=== PATIENT | male | born 1940 | race Caucasian/White ===

== ENCOUNTER → 2018-01-18 | Outpatient (CLI) | payer MEDICARE, OTHER ==
--- NOTE | 2018-01-18 15:21 | XCELERA REPORT ---
[address] [address] Lower Extremity Arterial Evaluation Name: SIMA OLVERA Age: 78 yrs Gender: Male : 1940 Patient Status: Outpatient Patient Location: Study Date: 01/18/2018 11:32 AM Procedure: A color flow and duplex scan of the lower extremity arteries was performed bilaterally with velocity and waveform anaylsis. 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 Biphasic form Femoral to the infrageniculate vessels. 20-49 % stenosis at the Femoral artery. Ankle Brachial index not done due to bandaging. Left Side Arterial Evaluation Normal velocity and triphasic waveforms noted in the Common Femoral artery. Biphasic in the Deep Femoral then monophasic to the infrageniculate vessels. With well preserved waveform amplitude. 50-99 % stenosis at the Femoral artery. Ankle Brachial index not done due to bandaging. Interpretation Summary Moderate hemodynamically significant lesions in the right lower extremity only, on duplex imaging, at rest. Severe hemodynamically significant lesions in the left lower extremity only, on duplex imaging, at rest. : BRUCE EAST > [facility]
--- NOTE | 2018-01-18 18:26 | XCELERA REPORT ---
[address] [address] Lower Extremity Venous Evaluation Name: SIMA OLVERA Age: 78 yrs Gender: Male : 1940 Patient Status: Outpatient Patient Location: Study Date: 01/18/2018 10:36 AM Procedure: A bilateral duplex scan of the lower extremity veins was performed. The evaluation included responses to compression and other maneuvers with patient in the supine and standing positions to assess venous insufficiency. Reason For Study: ULCER Ordering Physician: BRUCE EAST Performed By: Janice Galloway Right Sided Venous Evaluation Deep venous system evaluatiion shows patent veins with no obstruction or significant reflux identified. Sapheno Femoral junction: no reflux. Femoral vein reflux: no reflux. Greater Saphenous vein, Proximal thigh: reflux: no reflux. Greater Saphenous vein, Distal thigh: reflux: no reflux. Greater Saphenous vein, Proximal below knee: reflux: no reflux. No significant Perforators identified. Left Sided Venous Evaluation Deep venous system evaluatiion shows patent veins with no obstruction or significant reflux identified. Sapheno Femoral junction: no reflux. Femoral vein reflux: no reflux. Greater Saphenous vein, Proximal thigh: reflux: no reflux. Greater Saphenous vein, Distal thigh: reflux: no reflux. Greater Saphenous vein, Proximal below knee: reflux: no reflux. No significant Perforators identified. Interpretation Summary No duplex evidence of DVT or obstruction in the bilateral lower extremities. No deep or superficial reflux in the lower extremities was found. : BRUCE EAST > [facility] [place]
== END ==
LOC: SP 10:11
PROVIDERS: ATTEND Surgery
DX: L97.212 Non-pressure chronic ulcer of right calf with fat layer exposed (principal); L97.522 Non-pressure chronic ulcer of other part of left foot with fat layer exposed
CPT/HCPCS: 93925; 93970

== ENCOUNTER 2019-09-06 10:30 | Day surgery (SDC) | payer MEDICARE, OTHER ==
[~2019-09-06 10:30] MED LIST: CHONDR SU A NA/HYALUR INTRAOC KIT (SURGICARE) ONE; DORZOLAMIDE HCL 2%/TIMOLOL MALEAT 0.5% OPH SOLN 10 ML OD PRN; EPINEPHRINE INJ/PF 1 MG/1 ML AMPULE ONE; KETOROLAC TROMETHAMINE 0.45% 4 DROP/0.4 ML DROPERETTE OD PRN; LIDOCAINE 1%/PHENYLEPHRINE 1.5% 1 ML VIAL ONE; TOBRAMYCIN SULFATE/DEXAMETH OPH OINTMENT 3.5 GM ONE
[2019-09-06] MEDS ORDERED: ONDANSETRON HCL INJ/PF 4 MG/2 ML SDV ONE (10:35)
[2019-09-06] MEDS ORDERED: MIDAZOLAM 2 MG/2 ML INJ ONE (10:35)
[2019-09-06] MEDS ORDERED: FENTANYL CITRATE INJ/PF 100 MCG/2 ML AMPUL ONE (10:36)
[2019-09-06] MEDS: TETRACAINE HCL 0.5% OPH SOLN 4 ML OD PRN ×3 (11:05→11:38)
[2019-09-06] MEDS: BESIFLOXACIN HCL 0.6% OPH SUSP 5 ML BOTTLE OD PRN ×3 (11:05→11:59)
[2019-09-06] MEDS: TROPICAMIDE 1% OPH SOLN 15 ML OD PRN ×3 (11:05→11:25)
[2019-09-06] MEDS: CYCLOPENTOLATE 0.2%/PHENYLEPHRINE 1% OPH SOLN 2 ML OD PRN ×3 (11:05→11:25)
[2019-09-06] MEDS ORDERED: TOBRAMYCIN SULFATE/DEXAMETH OPH OINTMENT 3.5 GM ONE (11:24)
== END 2019-09-06 12:50 | disposition home or self-care (01) ==
LOC: SC 10:30
PROVIDERS: ATTEND Ophthalmology
DX: H25.11 Age-related nuclear cataract, right eye (principal); I10 Essential (primary) hypertension; E78.00 Pure hypercholesterolemia, unspecified; J44.9 Chronic obstructive pulmonary disease, unspecified; I48.91 Unspecified atrial fibrillation; M10.9 Gout, unspecified; Z86.14 Personal history of Methicillin resistant Staphylococcus aureus infection; Z79.899 Other long term (current) drug therapy; Z79.01 Long term (current) use of anticoagulants; Z87.891 Personal history of nicotine dependence
CPT/HCPCS: 66984; V2632; J2250; J3490 ×3; A9270; J0171; J2405; J2370; 142; J3010

== ENCOUNTER 2019-09-20 10:58 | Day surgery (SDC) | payer MEDICARE, OTHER ==
[~2019-09-20 10:58] MED LIST changes: -CHONDR SU A NA/HYALUR INTRAOC KIT (SURGICARE) ONE; -DORZOLAMIDE HCL 2%/TIMOLOL MALEAT 0.5% OPH SOLN 10 ML OD PRN; -EPINEPHRINE INJ/PF 1 MG/1 ML AMPULE ONE; -KETOROLAC TROMETHAMINE 0.45% 4 DROP/0.4 ML DROPERETTE OD PRN; +KETOROLAC TROMETHAMINE 0.45% 4 DROP/0.4 ML DROPERETTE OS PRN; +LIDOCAINE 1% INJ-PF (10 MG/ML) 30 ML SDV ONE; -LIDOCAINE 1%/PHENYLEPHRINE 1.5% 1 ML VIAL ONE; -TOBRAMYCIN SULFATE/DEXAMETH OPH OINTMENT 3.5 GM ONE
[2019-09-20] MEDS ORDERED: MIDAZOLAM 2 MG/2 ML INJ ONE (11:07)
[2019-09-20] MEDS ORDERED: FENTANYL CITRATE INJ/PF 100 MCG/2 ML AMPUL ONE (11:07)
[2019-09-20] MEDS: BESIFLOXACIN HCL 0.6% OPH SUSP 5 ML BOTTLE OS PRN ×4 (11:17→12:10)
[2019-09-20] MEDS: TROPICAMIDE 1% OPH SOLN 15 ML OS PRN ×3 (11:17→11:37)
[2019-09-20] MEDS: CYCLOPENTOLATE 0.2%/PHENYLEPHRINE 1% OPH SOLN 2 ML OS PRN ×3 (11:17→11:37)
[2019-09-20] MEDS: TETRACAINE HCL 0.5% OPH SOLN 4 ML OS PRN ×3 (11:18→11:48)
[2019-09-20] MEDS: LIDOCAINE 1%/PHENYLEPHRINE 1.5% 1 ML VIAL ONE ×2 (12:01)
[2019-09-20] MEDS: EPINEPHRINE INJ/PF 1 MG/1 ML AMPULE ONE ×2 (12:01)
[2019-09-20] MEDS: CHONDR SU A NA/HYALUR INTRAOC KIT (SURGICARE) ONE ×2 (12:01)
[2019-09-20] MEDS: TOBRAMYCIN SULFATE/DEXAMETH OPH OINTMENT 3.5 GM ONE ×2 (12:10)
[2019-09-20] MEDS: DORZOLAMIDE HCL 2%/TIMOLOL MALEAT 0.5% OPH SOLN 10 ML OS PRN ×2 (12:10)
== END 2019-09-20 13:05 | disposition home or self-care (01) ==
LOC: SC 10:58
PROVIDERS: ATTEND Ophthalmology
DX: H25.12 Age-related nuclear cataract, left eye (principal); Z98.41 Cataract extraction status, right eye; Z79.01 Long term (current) use of anticoagulants; Z87.891 Personal history of nicotine dependence; Z79.899 Other long term (current) drug therapy; I10 Essential (primary) hypertension; E78.00 Pure hypercholesterolemia, unspecified
CPT/HCPCS: 66984; 00142; V2632; J2250; J3490 ×2; A9270 ×2; J0171; J2370; 142; J3010

== ENCOUNTER → 2019-10-30 | Outpatient (CLI) | payer MEDICARE, OTHER ==
--- NOTE | 2019-10-31 11:42 | XCELERA REPORT ---
[address] [address] Lower Extremity Arterial Evaluation Name: SIMA OLVERA Age: 79 yrs Gender: Male : 1940 Patient Status: Outpatient Patient Location: Study Date: 10/30/2019 02:19 PM Procedure: A color flow and duplex scan of the lower extremity arteries was performed bilaterally with velocity and waveform anaylsis. Ankle brachial indicies performed. Reason For Study: RIGHT CALF ULCER Ordering Physician: WANDER ERVIN Performed By: Yvon Mariee Measurements and Calculations Right Left CAUL PULLER PSV 213.3 150.1 cm/sec Prox PFA PSV -125.7 76.6 cm/sec Prox Pop A PSV 105.0 93.3 cm/sec Dist Pop A PSV -79.1 -87.4 cm/sec Dist JULISSA PSV 90.8 43.2 cm/sec Dist WASH PLANT OPERATOR PSV 46.3 82.5 cm/sec Adam Pedis PSV 52.0 30.3 cm/sec Right Side Arterial Evaluation Normal velocity and triphasic waveforms noted from the Common Femoral artery to the Popliteal artery. Biphasic with normal velocity in the Anterior and Posterior Tibial arteries. Ankle Brachial index 0.94. A little lower in the Dorsalis Pedis. Left Side Arterial Evaluation Normal velocity and triphasic waveforms noted from the Common Femoral artery to the Popliteal artery. Over twice normal velocity in the mid Femoral artery. Biphasic with normal velocity in the Anterior and Posterior Tibial arteries. Ankle Brachial index 0.92. A little lower in the Dorsalis Pedis. Interpretation Summary Mild hemodynamically significant lesions in the bilateral lower extremities, on duplex imaging, at rest. Duplex study is bilaterally symmetrical, with changes at the infrageniculate vessels. Except for focal high grade stenosis in the left Femoral artery. LAYLA's are normal, but mildly challenged in the Dorsalis Pedis. Stress testing or ambulation could bring out significance in left Femoral artery. : WANDER ERVIN > [facility] [place]
== END ==
LOC: SP 13:39
PROVIDERS: ATTEND Nurse Practitioner Family
DX: L97.212 Non-pressure chronic ulcer of right calf with fat layer exposed (principal)
CPT/HCPCS: 93922; 93925